=== PATIENT | male | born 1995 | race Caucasian/White ===

== ENCOUNTER 2018-10-04 23:48 | Emergency (ER) | payer OTHER ==
[~2018-10-04] VITALS: Ht 190.5 cm; Wt 121.0 kg
[2018-10-05] MEDS ORDERED: ONDANSETRON ODT 4 MG PO ONE (00:30)
[2018-10-05] MEDS ORDERED: ONDANSETRON ODT 4 MG ONE (00:33)
[2018-10-05 00:59] VITALS: BP 138/81
== END 2018-10-05 01:01 | disposition home or self-care (01) ==
LOC: ED 23:59
DX: F41.1 Generalized anxiety disorder (principal); F12.10 Cannabis abuse, uncomplicated
CPT/HCPCS: 99284; Q0162; Q0177

== ENCOUNTER 2018-10-05 02:49 | Emergency (ER) | payer OTHER ==
[~2018-10-05] VITALS: Ht 190.5 cm; Wt 121.0 kg
--- NOTE | 2018-10-05 03:10 | NUR ---
FIRST CONTACT WITH PT. PT REPORTS INCREASED ANXIETY AND L SIDED CHEST TIGHTNESS. CHEST PAIN RADIATES ACROSS CHEST. ONSET WHILE SLEEPING, NO RELIEVING FACTORS. PT DENIES N/V/SOB/DIAPHORESIS. PT SEEN IN ED LAST NIGHT FOR SAME, RELIEF WITH ANTI-ANXIETY MEDICATIONS, "I WAS ABLE TO GO HOME AND SLEEP, BUT IT HAS JUST GOTTEN WAY WORSE". PT ANXIOUS, COOPERATIVE. BP/SPO2/ECG MONITORING IN PLACE. NSR ON MONITOR. FRIEND AT BEDSIDE. REPORT TO CODY CROWLEY
[2018-10-05 03:27] LABS: BASOPHILS # (AUTO) 0.02 x10^3/uL (0-0.1); BASOPHILS % (AUTO) 0 % (0-1); EOSINOPHILS # (AUTO) 0.04 x10^3/uL (0-0.4); EOSINOPHILS % (AUTO) 1 % (1-7); LYMPHOCYTES % (AUTO) 40 % (22-44); MD NO; MEAN CORPUSCULAR HEMOGLOBIN 30.6 pg (27.5-34.5); MEAN CORPUSCULAR HGB CONC 33.8 g/dL (33.2-36.2); MEAN CORPUSCULAR VOLUME 90.4 fL (81-97); MEAN PLATELET VOLUME 7.9 fL (7.4-10.4); MONOCYTES # (AUTO) 0.35 x10^3/uL (0.2-0.8); MONOCYTES % (AUTO) 6 % (2-9); NEUTROPHILS # (AUTO) 3.15 x10^3/uL (1.8-6.8); NEUTROPHILS % (AUTO) 53 % (42-75); PLATELET COUNT 197 x10^3/uL (130-400); RED BLOOD COUNT 5.61 x10^6/uL (4.38-5.82); RED CELL DISTRIBUTION WIDTH 12.6 % (9.4-14.8)
[2018-10-05 03:35] LABS: ALBUMIN 4.3 g/dL (3.4-5.0); ANION GAP 8 mmol/L (5-15); CALCIUM 9.1 mg/dL (8.5-10.1); CHLORIDE 108 mmol/L (98-107); CREATININE 1.11 mg/dL (0.7-1.3)
[2018-10-05] MEDS ORDERED: OLANZAPINE 10 MG TABLET PO ONE (04:30)
[2018-10-05] MEDS ORDERED: ONDANSETRON ODT 4 MG ONE (04:54)
[2018-10-05] MEDS ORDERED: OLANZAPINE 10 MG TABLET ONE (04:55)
--- NOTE | 2018-10-05 04:58 | NUR ---
PT MEDICATED PER JUN. POC DISCUSSED. HAS RECHECKED PT. PT TBDC
[2018-10-05] MEDS ORDERED: ONDANSETRON ODT 4 MG PO ONE (05:00)
[2018-10-05 05:03] VITALS: BP 139/84
== END 2018-10-05 05:09 | disposition home or self-care (01) ==
LOC: ED 03:10
DX: F41.1 Generalized anxiety disorder (principal); F32.9 Major depressive disorder, single episode, unspecified; F11.10 Opioid abuse, uncomplicated
CPT/HCPCS: 36415; 80048; 82040; 84439; 84443; 85025; 93005; 99284; Q0162

== ENCOUNTER 2018-10-18 05:53 | Emergency (ER) | payer OTHER ==
[~2018-10-18] VITALS: Ht 190.5 cm; Wt 120.1 kg
[2018-10-18] MEDS ORDERED: PROMETHAZINE 25 MG/ML, 1ML ONE (06:20)
--- NOTE | 2018-10-18 06:28 | NUR ---
Pt c/o anxiety not relieved by home medication, pacing room, denies pain, vitals stable, EKG complete, labs drawn, friend at bedside. Medication administered per MD orders.
[2018-10-18] MEDS ORDERED: MAALOX/HYOSCYAMINE/LIDOCAINE 45 ML BTL PO ONE (06:30)
[2018-10-18] MEDS ORDERED: PROMETHAZINE 25 MG/ML, 1ML IM ONE (06:30)
[2018-10-18 06:32] LABS: BASOPHILS # (AUTO) 0.02 x10^3/uL (0-0.1); BASOPHILS % (AUTO) 0 % (0-1); EOSINOPHILS # (AUTO) 0.02 x10^3/uL (0-0.4); EOSINOPHILS % (AUTO) 0 % (1-7); LYMPHOCYTES # (AUTO) 1.25 x10^3/uL (1-3.4); LYMPHOCYTES % (AUTO) 20 % (22-44); MD NO; MEAN CORPUSCULAR HEMOGLOBIN 30.7 pg (27.5-34.5); MEAN CORPUSCULAR HGB CONC 34.1 g/dL (33.2-36.2); MEAN CORPUSCULAR VOLUME 89.8 fL (81-97); MEAN PLATELET VOLUME 7.9 fL (7.4-10.4); MONOCYTES # (AUTO) 0.23 x10^3/uL (0.2-0.8); MONOCYTES % (AUTO) 4 % (2-9); NEUTROPHILS # (AUTO) 4.84 x10^3/uL (1.8-6.8); NEUTROPHILS % (AUTO) 76 % (42-75); PLATELET COUNT 204 x10^3/uL (130-400); RED BLOOD COUNT 5.61 x10^6/uL (4.38-5.82); RED CELL DISTRIBUTION WIDTH 13.3 % (9.4-14.8)
[2018-10-18] MEDS ORDERED: MAALOX/HYOSCYAMINE/LIDOCAINE 45 ML BTL ONE (06:40)
[2018-10-18 06:45] LABS: ALANINE AMINOTRANSFERASE 39 U/L (12-78); ALBUMIN 4.4 g/dL (3.4-5.0); ANION GAP 8 mmol/L (5-15); CALCIUM 9.5 mg/dL (8.5-10.1); CHLORIDE 108 mmol/L (98-107)
[2018-10-18 06:48] LABS: ALKALINE PHOSPHATASE 81 U/L (45-117); BILIRUBIN,TOTAL 1.7 mg/dL (0.2-1.0); CREATININE 1.09 mg/dL (0.7-1.3); TOTAL PROTEIN 7.9 g/dL (6.4-8.2)
--- NOTE | 2018-10-18 07:17 | NUR ---
went to check on patient and he is very calm, and sleeping. friend at bedside. patient states he had a panic attack and that is what brought him in. he states he doesn't feel better at this time. he was sleeping soundly. but when he wakes he calmly states he feels anxious. he states this is first time for him. he states he has a new job that could possibly be [employer].
[2018-10-18 07:53] VITALS: BP 135/78
--- NOTE | 2018-10-18 07:54 | NUR ---
dc teaching reviewed. shows understanding.
== END 2018-10-18 08:01 | disposition home or self-care (01) ==
LOC: ED 07:21
DX: F41.1 Generalized anxiety disorder (principal); F32.9 Major depressive disorder, single episode, unspecified; R11.10 Vomiting, unspecified
CPT/HCPCS: 36415; 71045; 80053; 83690; 85025; 93005; 96372; 99284; J2550